=== PATIENT | male | born 1940 | race African-American/Black ===

== ENCOUNTER 2019-06-04 10:50 | Emergency (ER) | payer MEDICARE ==
[~2019-06-04] VITALS: Ht 180.3 cm; Wt 65.4 kg
--- NOTE | 2019-06-04 12:06 | PHYS DOC ---
Adult General Chief Complaint Chief Complaint: URINARY RETENTION HPI HPI Patient is a 78 year old male who presents with complaint of unable to urinate. Patient states he was not able to urinate since yesterday denies dysuria, abdominal pain, fever and chills, history of the same problem. Patient also c omplaining of constipation for the last 4 days and state he had pressure in his rectum but was not able to have bowel movement with taking MiraLAX. Patient denies nausea and vomiting and change of his appetite and taking narcotic pain medication. Review of Systems Review of Systems Constitutional: Denies fever or chills [] Eyes: Denies change in visual acuity, redness, or eye pain [] HENT: Denies nasal congestion or sore throat [] Respiratory: Denies cough or shortness of breath [] Cardiovascular: No additional information not addressed in HPI [] GI: Denies abdominal pain, nausea, vomiting, bloody stools or diarrhea [] : Denies dysuria or hematuria [] Musculoskeletal: Denies back pain or joint pain [] Integument: Denies rash or skin lesions [] Neurologic: Denies headache, focal weakness or sensory changes [] Endocrine: Denies polyuria or polydipsia [] All other systems were reviewed and found to be within normal limits, except as documented in this note. Current Medications Current Medications Current Medications Medications (Trade) Dose Ordered Sig/Amberly Start Time Stop Time Status Last Admin Dose Admin Sodium Monofluorophosphate (Fleet Adult) 133 ml 1X ONCE 06/04/19 12:15 06/04/19 12:16 DC 06/04/19 12:13 133 ML Allergies Allergies Allergies Coded Allergies Type Severity Reaction Last Updated Verified No Known Drug Allergies 06/04/19 No Physical Exam Physical Exam Constitutional: Well developed, well nourished, mild distress, non-toxic appearance. [] HENT: Normocephalic, atraumatic. Eyes: PERRLA, EOMI, conjunctiva normal, no discharge. [] Neck: Normal range of motion, no tenderness, supple, no stridor. [] Cardiovascular:Heart rate regular rhythm, no murmur [] Lungs & Thorax: Bilateral breath sounds clear to auscultation [] Abdomen: Bowel sounds normal, soft, no tenderness, no masses, no pulsatile masses. 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 Skin: Warm, dry, no erythema, no rash. [] Back: No tenderness, no CVA tenderness. [] Extremities: No tenderness, no cyanosis, no clubbing, ROM intact, no edema. [] Neurologic: Alert and oriented X 3, no focal deficits noted. [] Psychologic: Affect normal, judgement normal, mood normal. [] Current Patient Data Vital Signs Vital Signs Date Time Temp Pulse Resp B/P (MAP) Pulse Ox O2 Delivery O2 Flow Rate FiO2 06/04/19 14:00 66 16 99 06/04/19 11:56 98.7 145/78 (100) Room Air 98.7 Lab Values Laboratory Tests Test 06/04/19 13:42 Urine Collection Type Unknown Urine Color Yellow Urine Clarity Clear Urine pH 6.0 Urine Specific [place] 1.015 Urine Protein Negative mg/dL (NEG-TRACE) Urine Glucose (UA) Negative mg/dL (NEG) Urine Ketones (Stick) Negative mg/dL (NEG) Urine Blood Moderate (NEG) Urine Nitrite Negative (NEG) Urine Bilirubin Negative (NEG) Urine Urobilinogen Dipstick 1.0 mg/dL (0.2 mg/dL) Urine Leukocyte Esterase Negative (NEG) Urine RBC 6-10 /HPF (0-2) Urine WBC 0 /HPF (0-4) Urine Transitional Epithelial Cells Few /LPF Urine Bacteria 0 /HPF (0-FEW) Urine Mucus Slight /LPF EKG EKG [] Radiology/Procedures Radiology/Procedures [] Course & Med Decision Making Course & Med Decision Making Pertinent Labs and Imaging studies reviewed. (See chart for details) Dilution of patient in ER showed 78-year-old male patient with complaining of urinary retention and constipation. Patient had 116 mL of urine in bladder scan. Patient has Fleet Enema some bowel movement and improvement of rectal pain. X- ray of abdomen showed fecal impaction without obstruction. UA did not show UTI. Patient was informed that his urinary retention is related to constipation and prescription for GoLYTELY was given. I've spoken with the patient and/or caregivers. I've explained the patient's condition, diagnosis and treatment plan based on information available to me at this time. I've answered the patient's and/or caregivers questions and addressed any concerns. The patient and/or caregivers have a good understanding the patient's diagnosis, condition and treatment plan as can be expected at this point. Vital signs have been stabilized. The patient's condition is stable for discharge from the emergency department. The patient will pursue further outpatient evaluation with her primary care provider or other designated consulting physician as outlined in the discharge instructions. Patient and/or caregivers are agreeable to this plan of care and follow-up instructions have been explained in detail. The patient and/or caregivers have received these instructions in written format and expressed understanding of these discharge instructions. The patient and her caregivers are aware that if any significant change in condition or worsening of symptoms should prompt him to immediately return to this of the closest emergency department. If an emergent department is not readily available I would encourage him to call 911. Dragon Disclaimer Dragon Disclaimer This electronic medical record was generated, in whole or in part, using a voice recognition dictation system. Departure Departure Impression: Primary Impression: Fecal impaction Additional Impressions: Urinary retention Constipation Disposition: HOME, SELF-CARE (1412) Condition: IMPROVED Referrals: NO PCP (PCP) Patient Instructions: Constipation, Adult, Fecal Impaction, Urinary Retention, Acute, Male Additional Instructions: Drink plenty of liquids Follow-up with your primary care physician in 3-5 days Return to ER if not getting better Take [id number] magnesium citrate for chronic constipation Thank you for visiting [facility]. We appreciate you trusting us with your care. If any additional problems come up don't hesitate to return to visit us. Please follow up with your primary care provider so they can plan additional care if needed and know about the problem that you had. If symptoms worsen come back to the Emergency Department. Any concerning symptoms that start such as chest pain, shortness of air, weakness or numbness on one side of the body, running high fevers or any other concerning symptoms return to the ER. Scripts Peg 3350/Na Sulf,Bicarb,Cl/Kcl (GOLYTELY SOLUTION) 4,000 Ml Soln.recon 4000 ML PO 1X, #1 MISC Drink 1 cup every an hour until having a bowel movements Prov: ANGIE RIDER MD 06/04/19 Problem Qualifiers Additional Impressions: Constipation Constipation type: unspecified constipation type Qualified Codes: K59.00 - Constipation, unspecified ANGIE RIDER MD Jun 04, 2019 12:06
[2019-06-04] MEDS ORDERED: SODIUM PHOSPHATES 19/7GM 133 ML ENEMA. PR ONE (12:15)
--- NOTE | 2019-06-04 12:30 | RAD ---
Supine and upright views of the abdomen Clinical indications: Constipation. FINDINGS: There is a large amount of fecal retention throughout the colon and rectosigmoid region. No small bowel dilatation is evident. No air-fluid levels are evident. No free intraperitoneal air is evident. IMPRESSION: Significant fecal retention. Electronically signed by: Bill Miller MD (06/04/2019 12:27 PM) [facility] [place]
[2019-06-04 13:50] LABS: BILIRUBIN,URINE NEGATIVE (NEG); CLARITY,URINE CLEAR; COLOR,URINE YELLOW; NITRITE,URINE NEGATIVE (NEG); PROTEIN,URINE NEGATIVE (NEG-TRACE)
[2019-06-04 14:00] VITALS: BP 164/88
[2019-06-04 14:00] LABS: BACTERIA,URINE 0 /HPF (0-FEW); WBC,URINE 0 /HPF (0-4)
[2019-06-04] MEDS ORDERED: PEG4000S8 PO (14:16)
== END 2019-06-04 14:25 | disposition home or self-care (01) ==
LOC: ER 10:50
DX: K56.41 Fecal impaction (principal); R33.9 Retention of urine, unspecified; R50.9 Fever, unspecified
CPT/HCPCS: 74021; 81001; 99284